=== PATIENT | male | born 1995 | race Two or more races ===

== ENCOUNTER 2017-02-15 08:28 | Emergency (ER) | payer MEDICAID ==
--- NOTE | 2017-02-15 08:38 | ED Physician Documentation ---
PD HPI HEADACHE - Stated complaint Stated Complaint: HEADACHE - Chief complaint Chief Complaint: Neuro - History obtained from History obtained from: Patient - History of Present Illness Timing - onset: How many days ago (3) Timing - onset during: Rest Timing - duration: Days (3) Timing - details: Gradual onset, Still present, Waxing and waning Worst headache ever?: No: Worst headache ever? Location: Front Quality: Throbbing Associated symptoms: Nausea, Vomiting. No: Fever, Stiff neck, Weakness, Numbness, Syncope, Seizure, Eye pain, Vision changes Improved by: Rest Worsened by: Light, Noise, Moving Contributing factors: No: Anticoagulated Similar symptoms before: Diagnosis (migraine headache) Recently seen: Not recently seen Review of Systems Constitutional: denies: Fever Eyes: denies: Decreased vision Ears: denies: Ear pain Nose: reports: Congestion. denies: Rhinorrhea / runny nose Throat: denies: Sore throat Cardiac: denies: Chest pain / pressure, Palpitations Respiratory: reports: Cough. denies: Dyspnea GI: reports: Nausea, Vomiting. denies: Abdominal Pain : denies: Dysuria, Frequency Skin: denies: Rash Musculoskeletal: denies: Neck pain, Back pain Neurologic: reports: Headache. denies: Generalized weakness, Focal weakness, Numbness, Head injury, LOC PD PAST MEDICAL HISTORY - Past Medical History Past Medical History: Yes Neuro: Headache/migraine - Past Surgical History Past Surgical History: No - Present Medications Home Medications: Ambulatory Orders Medication Instructions Recorded Confirmed No Known Home Medications [No 02/15/17 02/15/17 Known Home Medications] - Allergies Allergies/Adverse Reactions: Allergies Allergy/AdvReac Type Severity Reaction Status Date / Time bee stings Allergy Severe Edema Uncoded 02/15/17 08:32 - Social History Does the pt smoke?: No Smoking Status: Never smoker Does the pt drink ETOH?: No Does the pt have substance abuse?: No - Immunizations Immunizations are current?: Yes - POLST Patient has POLST: No PD ED PE NORMAL - Vitals Vital signs reviewed: Yes (normal ) - General General: No acute distress, Well developed/nourished - HEENT HEENT: Atraumatic, PERRL, EOMI, Ears normal, Moist mucous membranes, Pharynx benign, Dentition benign - Neck Neck: Supple, no meningeal sign, No bony TTP - Cardiac Cardiac: RRR, No murmur - Respiratory Respiratory: No respiratory distress, Clear bilaterally - Abdomen Abdomen: Soft, Non tender - Back Back: No CVA TTP, No spinal TTP - Derm Derm: Normal color, Warm and dry, No rash - Extremities Extremities: No deformity, No edema - Neuro Neuro: Alert and oriented X 3, No motor deficit, No sensory deficit, Normal speech - Psych Psych: Normal mood, Normal affect Results - Vitals Vitals: Vital Signs - 24 hr 02/15/17 02/15/17 08:30 09:15 Temperature 36.6 C Heart Rate 69 65 Respiratory 18 Rate Blood Pressure 125/67 O2 Saturation 99 98 Oxygen O2 Source Room air PD MEDICAL DECISION MAKING - ED course Complexity details: reviewed old records, reviewed results, re-evaluated patient , considered differential, d/w patient, d/w family ED course: 21 y/o male with a headache throbbing has inadequate relief of the headache with toradal and he is given dialudid. His nausea is resolved with the use of zofran. Departure - Departure Disposition: 01 Home, Self Care Clinical Impression: Migraine Qualifiers: Migraine type: unspecified Status migrainosus presence: without status migrainosus Intractability: not intractable Qualified Code(s): G43.909 - Migraine, unspecified, not intractable, without status migrainosus Condition: Stable Instructions: ED Headache Migraine Follow-Up: [facility] [Provider Group]
[2017-02-15] MEDS ORDERED: ONDANSETRON ODT 4 MG TABLET TL STA (08:39)
[2017-02-15] MEDS ORDERED: KETOROLAC 60 MG/2 ML VIAL IM STA (08:39)
[2017-02-15] MEDS ORDERED: ONDANSETRON ODT 4 MG TABLET ONE (08:45)
[2017-02-15] MEDS ORDERED: KETOROLAC 60 MG/2 ML VIAL ONE (08:45)
[2017-02-15] MEDS ORDERED: HYDROmorphone 1 MG/ML SYRINGE IM STA (09:33)
[2017-02-15] MEDS ORDERED: HYDROmorphone 1 MG/ML SYRINGE ONE (09:37)
[2017-02-15 10:30] VITALS: BP 115/60
== END 2017-02-15 10:04 | disposition home or self-care (01) ==
LOC: ED 08:28
DX: G43.909 Migraine, unspecified, not intractable, without status migrainosus (principal)
CPT/HCPCS: 96372; 99283; 99284; J1170; Q0162

== ENCOUNTER 2017-02-15 22:56 | Emergency (ER) | payer MEDICAID ==
[2017-02-15] MEDS ORDERED: PROCHLORPERAZINE 10 MG/2 ML VIAL IVP STA (23:25)
[2017-02-15] MEDS ORDERED: SODIUM CHLORIDE 0.9% 1,000 ML IV ONE (23:25)
[2017-02-15] MEDS ORDERED: diphenhydrAMINE INJ 50 MG/ML VIAL IVP STA (23:25)
--- NOTE | 2017-02-15 23:27 | ED Physician Documentation ---
PD HPI HEADACHE - Stated complaint Stated Complaint: HEADACHE - Chief complaint Chief Complaint: Neuro - History obtained from History obtained from: Patient, Family - History of Present Illness Timing - onset: How many days ago (5) Timing - onset during: Rest Timing - duration: Days (5) Timing - details: Gradual onset, Waxing and waning Pain level max: 10 Pain level now: 10 Location: Global Quality: Throbbing, Aching. No: Thunderclap Associated symptoms: Fever (2 days ago), Nausea, Vomiting (today). No: Weakness , Numbness, Syncope, Seizure, Eye pain, Vision changes Improved by: Rest, Dark room Worsened by: Light, Noise, Moving Contributing factors: No: Anticoagulated, Possible carbon monoxide, Hypertension , Recent illness, Trauma Similar symptoms before: Has not had sx before Recently seen: Emergency Dept (seen here this am for same, family history of migraines, but not in [facility]. Took ibuprofen 800mg at 2145 tonight.) Review of Systems Ten Systems: 10 systems reviewed and negative Constitutional: denies: Chills Eyes: denies: Loss of vision, Decreased vision, Photophobia Ears: denies: Ear pain Nose: denies: Rhinorrhea / runny nose, Congestion Throat: denies: Sore throat Cardiac: denies: Chest pain / pressure Respiratory: denies: Cough GI: denies: Abdominal Pain, Nausea, Vomiting, Diarrhea Skin: denies: Rash Musculoskeletal: denies: Neck pain, Back pain Neurologic: denies: Focal weakness, Numbness, Seizure, Confused, Head injury, LOC PD PAST MEDICAL HISTORY - Past Medical History Past Medical History: Yes Neuro: Headache/migraine - Past Surgical History Past Surgical History: No - Present Medications Home Medications: Ambulatory Orders Medication Instructions Recorded Confirmed No Known Home Medications [No 02/15/17 02/15/17 Known Home Medications] - Allergies Allergies/Adverse Reactions: Allergies Allergy/AdvReac Type Severity Reaction Status Date / Time bee stings Allergy Severe Edema Uncoded 02/15/17 08:32 - Social History Does the pt smoke?: No Smoking Status: Never smoker Does the pt drink ETOH?: No Does the pt have substance abuse?: No - Immunizations Immunizations are current?: Yes - POLST Patient has POLST: No PD ED PE NORMAL - Vitals Vital signs reviewed: Yes - General General: Alert and oriented X 3, No acute distress, Well developed/nourished - HEENT HEENT: Atraumatic, PERRL, EOMI, Ears normal, Moist mucous membranes, Pharynx benign - Neck Neck: Supple, no meningeal sign, No bony TTP - Cardiac Cardiac: RRR, Strong equal pulses - Respiratory Respiratory: No respiratory distress, Clear bilaterally - Abdomen Abdomen: Soft, Non tender, Non distended - Back Back: No CVA TTP, No spinal TTP - Derm Derm: Warm and dry, No rash - Extremities Extremities: No deformity, No edema, No calf tenderness / cord - Neuro Neuro: Alert and oriented X 3, 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, No motor deficit, No sensory deficit, Normal speech, Other (Normal cerebellar tests) - Psych Psych: Normal mood, Normal affect Results - Vitals Vitals: Vital Signs - 24 hr 02/15/17 02/15/17 02/16/17 23:00 23:55 00:51 Temperature 36.5 C Heart Rate 87 74 71 Respiratory 16 16 18 Rate Blood Pressure 114/67 127/69 123/68 O2 Saturation 100 98 100 02/16/17 01:42 Temperature Heart Rate 73 Respiratory 18 Rate Blood Pressure O2 Saturation 100 Oxygen O2 Source Room air - Rads (name of study) Head CT Radiology: Prelim report reviewed, EMP read contemporaneously, See rad report ( Normal) PD MEDICAL DECISION MAKING - ED course Complexity details: reviewed results, re-evaluated patient, considered differential, d/w patient, d/w family ED course: Patient is a 21-year-old male with headache for the past 5 days. Does not normally get headaches, but there is a strong family history of migraines. No acute findings on head CT. Given Compazine, Benadryl and Imitrex. Headache resolved. Patient would like to go home at this time. No evidence of encephalitis, meningitis, cancer. Patient and family counseled regarding signs and symptoms for which I believe and urgent re-evaluation would be necessary. Patient with good understanding of and agreement to plan and is comfortable going home at this time This document was made in part using voice recognition software. While efforts are made to proofread this document, sound alike and grammatical errors may occur. Departure - Departure Disposition: 01 Home, Self Care Clinical Impression: Headache Qualifiers: Headache type: unspecified Headache chronicity pattern: acute headache Intractability: not intractable Qualified Code(s): R51 - Headache Condition: Good Instructions: ED Cephalgia Unspecified Follow-Up: your,doctor in 1 week [Other] Comments: Return if you worsen. Your head CT is normal tonight Discharge Date/Time: 02/16/17 02:00
[2017-02-15] MEDS ORDERED: PROCHLORPERAZINE 10 MG/2 ML VIAL ONE (23:41)
[2017-02-15] MEDS ORDERED: diphenhydrAMINE INJ 50 MG/ML VIAL ONE (23:41)
--- NOTE | 2017-02-16 00:21 | CT Preliminary Report ---
Exam: CT Head W/O IMPRESSION: Normal head CT. [facility] SITE ID: [id number]
--- NOTE | 2017-02-16 00:23 | CT Report ---
EXAM: CT HEAD EXAM DATE: 02/15/2017 11:56 PM. CLINICAL HISTORY: Headache, weakness, vomiting, and photophobia. COMPARISON: None. TECHNIQUE: Multiaxial CT images were obtained from the foramen magnum to the vertex. IV contrast: Non e. Reformats: Coronal. In accordance with CT protocol optimization, one or more of the following dose reduction techniques w ere utilized for this exam: automated exposure control, adjustment of mA and/or KV based on patient s ize, or use of iterative reconstructive technique. FINDINGS: Parenchyma: No intraparenchymal hemorrhage. No evidence of mass, midline shift, or CT findings of inf arction. Llanes-white differentiation is distinct. Extraaxial Spaces: Normal for age. No subdural or epidural collections identified. Ventricles: A cavum septum pellucidum is present, a normal variant. There is no evidence of midline s hift, hydrocephalus, or ventricular trapping. Sinuses: Imaged paranasal sinuses, orbits, and mastoids show no significant abnormality. Bones: No evidence of fracture or calvarial defect. IMPRESSION: Normal head CT. [facility] Referring Provider Line: [phone] SITE ID: [id number]
[2017-02-16] MEDS ORDERED: SUMAtriptan 6 MG/0.5 ML VIAL SUBQ STA (00:46)
[2017-02-16] MEDS ORDERED: SUMAtriptan 6 MG/0.5 ML VIAL SUBQ ONE (00:48)
[2017-02-16 00:52] VITALS: BP 123/68
== END 2017-02-16 02:00 | disposition home or self-care (01) ==
LOC: ED 22:56
DX: R51 Headache (principal)
CPT/HCPCS: 70450; 96372; 96374; 96375; 99283; 99284

== ENCOUNTER 2018-03-06 13:18 | Outpatient (CLI) | payer MEDICAID | END 2018-03-06 13:19 | disposition critical access hospital (66) | LOC: EMS 13:18 | PROVIDERS: ATTEND Surgery | DX: S51.812A Laceration without foreign body of left forearm, initial encounter (principal); X78.8XXA Intentional self-harm by other sharp object, initial encounter | CPT/HCPCS: A0425; A0429; A0999 ==

== ENCOUNTER 2018-03-06 13:25 | Emergency (ER) | payer MEDICAID ==
[2018-03-06] MEDS ORDERED: TETANUS/DIPHTHERIA/PERTUSSIS 0.5 ML SYRINGE IM ONE (13:49)
--- NOTE | 2018-03-06 13:53 | ED Physician Documentation ---
History of Present Illness - Stated complaint Stated Complaint: MHE - Chief complaint Chief Complaint: MHE - History obtained from History obtained from: Patient - Additonal information Additional information: 22-year-old male presents the emergency department for evaluation of suicidal ideations. The patient's been having increased depression and anxiety, the patient inflicted a superficial wounds to his left wrist. The patient denies any other attempts at self-harm. The patient still feels upset is having suicidal ideations. The patient denies any acute medical complaints or ingestion of any intoxicants or medications. Symptoms are described as moderate. No other associated symptoms. Review of Systems Constitutional: denies: Fever, Chills Eyes: denies: Loss of vision, Discharge Ears: denies: Ear pain Nose: denies: Congestion Throat: denies: Sore throat Cardiac: denies: Chest pain / pressure Respiratory: denies: Dyspnea GI: denies: Abdominal Pain Skin: reports: Laceration (s) (Superficial lacerations to the left forearm) Musculoskeletal: denies: Back pain Neurologic: denies: Generalized weakness Psychiatric: reports: Depressed, Suicidal. denies: Hallucinations, Delusions, Anxiety Immunocompromised: denies: Chemotherapy PD PAST MEDICAL HISTORY - Past Medical History Past Medical History: Yes Psych: Depression - Past Surgical History Past Surgical History: No - Present Medications Home Medications: Ambulatory Orders Medication Instructions Recorded Confirmed No Known Home Medications [No 02/15/17 03/06/18 Known Home Medications] - Allergies Allergies/Adverse Reactions: Allergies Allergy/AdvReac Type Severity Reaction Status Date / Time bee stings Allergy Severe Edema Uncoded 03/06/18 13:38 - Social History Does the pt smoke?: No Smoking Status: Never smoker Does the pt drink ETOH?: No Does the pt have substance abuse?: No - Immunizations Immunizations are current?: Yes - POLST Patient has POLST: No PD ED PE NORMAL - General General: Alert and oriented X 3, No acute distress - HEENT HEENT: Atraumatic, PERRL, EOMI, Moist mucous membranes - Neck Neck: Supple, no meningeal sign - Cardiac Cardiac: RRR - Respiratory Respiratory: No respiratory distress, Clear bilaterally - Abdomen Abdomen: Normal bowel sounds, Non tender - Derm Derm: Other (Superficial lacerations to the left forearm, no active bleeding, no signs of foreign body. The wounds will not require any laceration repair) - Extremities Extremities: No deformity - Neuro Neuro: Alert and oriented X 3, Normal speech - Psych Psych: Normal mood Results - Vitals Vitals: Vital Signs - 24 hr 03/06/18 03/06/18 13:31 16:28 Temperature 36.7 C Heart Rate 90 75 Respiratory 16 16 Rate Blood Pressure 127/79 119/65 O2 Saturation 97 100 Oxygen O2 Source Room air - Labs Labs: Laboratory Tests 03/06/18 03/06/18 03/06/18 13:50 13:50 14:05 WBC 7.3 RBC 5.06 Hgb 15.8 Hct 45.6 MCV 90.0 MCH 31.2 H MCHC 34.6 RDW 13.2 Plt Count 299 MPV 7.0 L Neut # (Auto) 6.4 Lymph # (Auto) 0.6 L [place] # (Auto) 0.2 Eos # (Auto) 0.1 Baso # (Auto) 0.0 Absolute Nucleated RBC 0.00 Nucleated RBC % 0.0 Sodium 136 Potassium 4.0 Chloride 105 Carbon Dioxide 24 Anion Gap 7.0 BUN 11 Creatinine 0.8 Estimated GFR (MDRD) 123 Glucose 97 Calcium 9.5 Salicylates < 6.0 Urine Opiates Screen NEGATIVE Ur Oxycodone Screen NEGATIVE Urine Methadone Screen NEGATIVE Ur Propoxyphene Screen NEGATIVE Acetaminophen < 10 L Ur Barbiturates Screen NEGATIVE Ur Tricyclics Screen NEGATIVE Ur Phencyclidine Scrn NEGATIVE Ur Amphetamine Screen NEGATIVE U Methamphetamines Scrn NEGATIVE U Benzodiazepines Scrn NEGATIVE Urine Cocaine Screen NEGATIVE U Cannabinoids Screen POSITIVE H Ethyl Alcohol < 5.0 PD MEDICAL DECISION MAKING - ED course ED course: The patient is medically cleared. The patient was seen by social work and unfortunately the patient still is having suicidal ideations and does not contract for safety. Social work will work on placing the patient into a behavioral health facility. The patient unfortunately will not be accepted until tomorrow morning. The patient's care will be turned over Dr. Arevalo at 23:00 PM - Sepsis Event Vital Signs: Vital Signs - 24 hr 03/06/18 03/06/18 13:31 16:28 Temperature 36.7 C Heart Rate 90 75 Respiratory 16 16 Rate Blood Pressure 127/79 119/65 O2 Saturation 97 100 Oxygen O2 Source Room air Departure - Departure Clinical Impression: Anxiety, Depression
[2018-03-06 13:58] LABS: BASOPHILS % (AUTO) 0.5 %; EOSINOPHILS # (AUTO) 0.1 10^3/uL (0.0-0.7); EOSINOPHILS % (AUTO) 1.4 %; HGB - HEMOGLOBIN 15.8 g/dL (14.0-18.0); LYMPHOCYTES # (AUTO) 0.6 10^3/uL (1.5-3.5); LYMPHOCYTES % (AUTO) 8.1 %; MEAN CORPUSCULAR HEMOGLOBIN 31.2 pg (27.0-31.0); MEAN CORPUSCULAR HGB CONC 34.6 g/dL (32.0-36.0); MONOCYTES # (AUTO) 0.2 10^3/uL (0.0-1.0); MONOCYTES % (AUTO) 2.7 %; NEUTROPHILS # (AUTO) 6.4 10^3/uL (1.5-6.6); NEUTROPHILS % (AUTO) 87.3 %; PLT - PLATELET COUNT 299 10^3/uL (130-450); RED BLOOD COUNT 5.06 10^6/uL (4.70-6.10); RED CELL DISTRIBUTION WIDTH 13.2 % (12.0-15.0); WHITE BLOOD COUNT 7.3 x10^3/uL (4.8-10.8)
[2018-03-06 14:11] LABS: BUN - BLOOD UREA NITROGEN 11 mg/dL (6-20); CALCIUM 9.5 mg/dL (8.5-10.3); CARBON DIOXIDE - CO2 24 mmol/L (21-32); CHLORIDE 105 mmol/L (101-111); CREATININE 0.8 mg/dL (0.6-1.2); GFR - MDRD 123 (>89); GLUCOSE 97 mg/dL (70-100); SALICYLATE < 6.0 mg/dL; SODIUM 136 mmol/L (135-145)
[2018-03-06 14:12] LABS: ACETAMINOPHEN < 10 ug/mL (10-30)
[2018-03-06 14:24] LABS: MUDS CUTOFF CONCENTRATIONS CUTOFF CONC BELOW:
[2018-03-06 14:40] LABS: AMPHETAMINE SCREEN,URINE NEGATIVE (NEGATIVE); BENZODIAZEPINES SCREEN, URINE NEGATIVE (NEGATIVE); COCAINE SCREEN URINE NEGATIVE (NEGATIVE); METHADONE SCREEN, URINE NEGATIVE (NEGATIVE); METHAMPHETAMINES SCREEN, URINE NEGATIVE (NEGATIVE); OPIATE SCREEN, URINE NEGATIVE (NEGATIVE); OXYCODONE SCREEN, URINE NEGATIVE (NEGATIVE); PROPOXYPHENE SCREEN, URINE NEGATIVE (NEGATIVE); TRICYCLIC ANTIDEPRESSANT,URINE NEGATIVE (NEGATIVE)
--- NOTE | 2018-03-07 06:10 | ED Physician Documentation ---
ED Addendum - Addendum Addendum: 03/07/18 06:09 Patient was monitored over night with no difficulties. Patient was signed over to Dr. Matt in the morning pending social work evaluation.
--- NOTE | 2018-03-07 06:56 | ED Physician Documentation ---
History of Present Illness - Stated complaint Stated Complaint: MHE - Chief complaint Chief Complaint: MHE PD PAST MEDICAL HISTORY - Past Medical History Past Medical History: Yes Psych: Depression - Past Surgical History Past Surgical History: No - Present Medications Home Medications: Ambulatory Orders Medication Instructions Recorded Confirmed No Known Home Medications [No 02/15/17 03/06/18 Known Home Medications] - Allergies Allergies/Adverse Reactions: Allergies Allergy/AdvReac Type Severity Reaction Status Date / Time bee stings Allergy Severe Edema Uncoded 03/06/18 13:38 - Social History Does the pt smoke?: No Smoking Status: Never smoker Does the pt drink ETOH?: No Does the pt have substance abuse?: No - Immunizations Immunizations are current?: Yes - POLST Patient has POLST: No Results - Vitals Vitals: Vital Signs - 24 hr 03/06/18 03/07/18 22:00 10:46 Temperature 36.7 C 36.6 C Heart Rate 84 69 Respiratory 20 16 Rate Blood Pressure 127/78 127/63 O2 Saturation 98 98 Oxygen O2 Source Room air - Labs Labs: Laboratory Tests 03/06/18 03/06/18 03/06/18 13:50 13:50 14:05 WBC 7.3 RBC 5.06 Hgb 15.8 Hct 45.6 MCV 90.0 MCH 31.2 H MCHC 34.6 RDW 13.2 Plt Count 299 MPV 7.0 L Neut # (Auto) 6.4 Lymph # (Auto) 0.6 L [place] # (Auto) 0.2 Eos # (Auto) 0.1 Baso # (Auto) 0.0 Absolute Nucleated RBC 0.00 Nucleated RBC % 0.0 Sodium 136 Potassium 4.0 Chloride 105 Carbon Dioxide 24 Anion Gap 7.0 BUN 11 Creatinine 0.8 Estimated GFR (MDRD) 123 Glucose 97 Calcium 9.5 Salicylates < 6.0 Urine Opiates Screen NEGATIVE Ur Oxycodone Screen NEGATIVE Urine Methadone Screen NEGATIVE Ur Propoxyphene Screen NEGATIVE Acetaminophen < 10 L Ur Barbiturates Screen NEGATIVE Ur Tricyclics Screen NEGATIVE Ur Phencyclidine Scrn NEGATIVE Ur Amphetamine Screen NEGATIVE U Methamphetamines Scrn NEGATIVE U Benzodiazepines Scrn NEGATIVE Urine Cocaine Screen NEGATIVE U Cannabinoids Screen POSITIVE H Ethyl Alcohol < 5.0 PD MEDICAL DECISION MAKING - ED course ED course: assumed care 630 AM 32 male presented yesterday with suicidal ideation and cutting medically clear voluntary multiple facilities willing to accept pt but apparently, although he has [facility], he does not have mental health insurance benefits so could not be placed yesterday and is boarding in ED while SW works with [facility] to get pt benefits and then [facility] auth for inpt vol psych admit I went to see pt he is sleeping awakened easily no new complaints RRR CTAB SW has addressed insurance issues and secured placement at [facility] pt remained stable - Sepsis Event Vital Signs: Vital Signs - 24 hr 03/06/18 03/07/18 22:00 10:46 Temperature 36.7 C 36.6 C Heart Rate 84 69 Respiratory 20 16 Rate Blood Pressure 127/78 127/63 O2 Saturation 98 98 Oxygen O2 Source Room air Departure - Departure Disposition: 65 Psych Hosp/Unit DC/Xfer Clinical Impression: Anxiety Depression Qualifiers: Depression Type: unspecified Qualified Code(s): F32.9 - Major depressive disorder, single episode, unspecified Condition: Fair Discharge Date/Time: 03/07/18 11:40
[2018-03-07 10:47] VITALS: BP 127/63
== END 2018-03-07 11:40 ==
LOC: EDUNIT# → ED 13:25
DX: R45.851 Suicidal ideations (principal); F32.9 Major depressive disorder, single episode, unspecified; F41.9 Anxiety disorder, unspecified; S51.812A Laceration without foreign body of left forearm, initial encounter; X78.8XXA Intentional self-harm by other sharp object, initial encounter
CPT/HCPCS: 36415; 80048; 80306; 80307; 80320; 80329; 85025; 90471; 99283; 99284

== ENCOUNTER 2019-03-05 14:47 | Outpatient (CLI) | payer MEDICAID | END 2019-03-05 14:48 | disposition short-term general hospital (02) | LOC: EMS 14:47 | PROVIDERS: ATTEND Surgery | DX: S06.9X1A Unspecified intracranial injury with loss of consciousness of 30 minutes or less, initial encounter (principal); S59.902A Unspecified injury of left elbow, initial encounter; S79.912A Unspecified injury of left hip, initial encounter; S49.92XA Unspecified injury of left shoulder and upper arm, initial encounter; V00.131A Fall from skateboard, initial encounter; Y93.51 Activity, roller skating (inline) and skateboarding; Y92.830 Public park as the place of occurrence of the external cause | CPT/HCPCS: A0425; A0427 ==